=== PATIENT | female | born 1945 | race Hispanic/Latino ===

== ENCOUNTER 2018-11-10 23:36 | Emergency (ER) | payer MEDICARE, OTHER ==
[~2018-11-10] VITALS: Ht 154.9 cm; Wt 94.8 kg
[~2018-11-10 23:36] MED LIST: ALLOPURINOL100 MG PO; ATENOLOL50 MG PO; DIOVAN HCT 1601 EAC1 PO; SYNTHROID50 MCG PO
--- OUTSIDE RECORDS SUMMARY | 2018-11-10 23:38 | XMS REPORT | Summary of Care ---
Author Author [facility] Organization [facility] Address Unknown Phone Unavailable Encounter HQ Encntr_alicjanikko(FIN) [id number] Date(s): 02/05/17 - 02/05/17 [facility] [address] [place] [address]- 7 [phone] Discharge Disposition: Home or Self Care Attending Physician: Fred Whittaker MD Vital Signs No data available for this section Problem List No data available for this section Allergies, Adverse Reactions, Alerts No data available for this section Medications No data available for this section Results No data available for this section Immunizations No data available for this section Procedures No data available for this section Social History No data available for this section Assessment and Plan No data available for this section
--- OUTSIDE RECORDS SUMMARY | 2018-11-10 23:38 | XMS REPORT | Continuity of Care Document ---
Author Author [facility] Organization [facility] Address Unknown Phone Unavailable Care Team Providers Care Vp Securities Name Role Phone [employer] Information Understory Unavailable Unavailable Problems Problem Status Onset Date Classification Date Reported Comments Source R10.9 - UNSPECIFIED ABDOMINAL PAIN Active 01/20/2017 [facility] Medications No Data Provided for This Section Allergies, Adverse Reactions, Alerts No Known Medication Allergies Immunizations No Data Provided for This Section Results No Data Provided for This Section Pathology Reports No Data Provided for This Section Diagnostic Reports Report Value Date Source Gallbladder US EXAM: Gallbladder ultrasound. CLINICAL HX: Epigastric abdominal pain. Age: 71 years. Gender: Female. TECHNIQUE: Grayscale and Doppler sonogram of the gallbladder. COMPARISON: None. FINDINGS: Midline structures: -- Pancreas: Visualized portion is unremarkable. -- Aorta: Visualized portion is unremarkable. -- IVC: Visualized portion is unremarkable. Liver: -- Parenchyma: Diffuse increased echogenicity. -- Length: 18.9 cm. -- Other: None. Main portal vein: -- Diameter: 1.2 cm. -- Flow: Normal directional flow. Gallbladder: -- Intraluminal gallstones: Negative. -- Wall: No thickening. -- Sonographic Garzon sign: Negative. -- Other: Ringdown/comet tail artifact from the nondependent wall consistent with adenomyomatosis. Common bile duct: -- Diameter: 0.3 cm. Other: None. IMPRESSION: 1. Enlarged, echogenic liver consistent with fatty infiltration. 2. Gallbladder adenomyomatosis. 02/05/2017 [facility] Consultation Notes No Data Provided for This Section Discharge Summaries No Data Provided for This Section History and Physicals No Data Provided for This Section Vital Signs No Data Provided for This Section Encounters Location Location Details Encounter Type Encounter Number Reason For Visit Attending Provider ADM Date DC Date Status Source [facility] [id number] Fred Whittaker 02/05/2017 02/06/2017 [facility] Procedures No Data Provided for This Section Assessment and Plan No Data Provided for This Section Plan of Care No Data Provided for This Section Social History Social History Date Source No data available for this section 02/06/2017 [facility] [place] Family History No Data Provided for This Section Advance Directives No Data Provided for This Section Functional Status No Data Provided for This Section
--- OUTSIDE RECORDS SUMMARY | 2018-11-10 23:38 | XMS REPORT ---
Author [facility] Address Unknown Phone Unavailable Care Team Providers Care Hoop Maker Name Role Phone Unavailable Unavailable Payers Payer Name Policy Type Policy Number Effective Date Expiration Date Problems This patient has no known problems. Allergies, Adverse Reactions, Alerts Allergy Name Allergy Type Status Severity Reaction(s) Onset Date Inactive Date Treating Clinician Comments No Known Allergies DA Active U 2011-05-07 00:00:00 Medications This patient has no known medications. Results Test Description Test Time Test Comments Text Results Atomic Results Result Comments BREAST,BIOPSY 2018-07-07 14:00:00 RUN DATE: 07/07/18 [facility] PAGE 1 RUN TIME: 1400 Specimen Inquiry RUN USER: INTERFACE [facility] [id number] LOC: [facility] #: [id number] AGE/SX: 73/F ROOM: RE07/06/18REG DR: Claudia Gar MD : 47 BED: DIS: STATUS: PRE REF TLOC: SPEC #: [id number] RECD: 07/06/18 STATUS: [facility] #: [id number] ABHINAV: 07/06/18- SUBM DR: Sherrie Isaacs MD ENTERED: 07/06/18 SP TYPE: BX BREAST OTHR DR: ORDERED: GROSS PROCEDURES: GROSS (07/07/181031) TISSUES: 1. BREAST CORE BIOPSY - RIGHT + 2. 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, RIGHT BREAST CALCIFICATIONS FINAL DIAGNOSIS Right breast, core biopsies with calcifications: BREAST WITH FIBROCYSTIC CHANGES INCLUDING APOCRINE METAPLASIA AND USUAL DUCTAL EPITHELIAL HYPERPLASIA MICROCALCIFICATIONS PRESENT INCLUDING POLARIZABLE MICROCALCIFICATIONS NEGATIVE FOR MALIGNANCY Right breast, core biopsies without calcifications: BREAST TISSUE WITH FIBROCYSTIC CHANGES INCLUDING APOCRINE METAPLASIA AND USUAL DUCTAL EPITHELIAL HYPERPLASIA A RARE MICROCALCIFICATION SEEN NEGATIVE FOR MALIGNANCY DMW/sm D [phone] MACROSCOPIC The first specimen is received in formalin, labeled with the patient's name, and identified as "right breast with calcifications". It consists of multiple yellow and white fibrofatty fragments of tissue measuring 2.2 X 1.2 X 0.3 cm in aggregate. The specimen is submitted in its entirety for microscopic evaluation in cassette (1). The second specimen is received in formalin, labeled with the patient's name, and identified as "right breast without calcifications". It consists of CONTINUED ON NEXT PAGE RUN DATE: 07/07/18 [facility] PAGE 2 RUN TIME: 1400 Specimen Inquiry RUN USER: INTERFACE SPEC #: [id number] PATIENT: ANCA MCCORMICK #[id number] (Continued) MACROSCOPIC (Continued) multiple yellow and white fibrofatty fragments of tissue measuring 2.2 X 1.2 X 0.2 cm. The specimen is submitted in its entirety for microscopic evaluation in cassette (2). GROSS PERFORMED AT [facility] [address] [place] [address] (p)[phone] MICROSCOPIC All of the stains, including any controls performed, stain appropriately. MICROSCOPIC PERFORMED AT [facility] [address] [place] [address] [phone])[phone] PERFORMING SITE Diagnosis performed at: [facility], [place] [address] [place] [id number] Signed SIGNATURE ON FILE Dariela Chakraborty MD 07/07/18 1400 END OF REPORT
--- OUTSIDE RECORDS SUMMARY | 2018-11-10 23:38 | XMS REPORT | Clinical Summary ---
Author Author [facility] Address Unknown Phone Unavailable Care Team Providers Care Coin Teller Name Role Phone Claudia Gar MD PCP Allergies Not on File Medications Not on file Active Problems Not on file Social History Date Tobacco Use Types Packs/Day Years Used Never Assessed Sex Assigned at Date Recorded Not on file Industry Job Start Date Occupation Not on file Not on file Not on file Travel End Travel History Travel Start No recent travel history available. Last Filed Vital Signs Not on file Plan of Treatment Health Maintenance Due Date Last Done Comments BREAST CANCER SCREENING 1996 COLONOSCOPY SCREENING 1996 SHINGLES VACCINES (#1) 1996 INFLUENZA VACCINE 10/06/2018 65+ PNEUMOCOCCAL VACCINE Completed 01/03/2016, 07/25/2014 Results Not on fileafter 11/09/2017 Insurance Type Payer Benefit Subscriber ID Effective Phone Address Plan / Dates Group Medicare MEDICARE MEDICARE xxxxxxxxxx 2012-P [place], PART A AND resent [place] B HMO CIGNA CIGNA xxxxxxxxxxx 2016 HMO/POS -Present Advance Directives For more information, please contact: [phone] Patient Hotel Housekeeper Explanation Type Date Recorded Advance Directives, Living Will and Medical Power of Dobie Man
--- OUTSIDE RECORDS SUMMARY | 2018-11-10 23:38 | XMS REPORT | Summary of Care ---
Author Author PATT BECERRIL M.D. Organization Unknown Address Unknown Phone Unavailable Care Team Providers Care Fleecer Name Role Phone PATT BECERRIL M.D. Unavailable Unavailable FRENCH SINGLETON MD Unavailable Unavailable Unavailable Unavailable Functional Status Name Dates Details Functional status health issues are not documented Status: Name Dates Details Cognitive status health issues are not documented Status: Problems Name Dates Details Right upper quadrant abdominal pain (789.01, R10.11) Status: Active Diabetes (250.00, E11.9) Status: Active GERD (gastroesophageal reflux disease) (530.81, K21.9) Status: Active IBS (irritable bowel syndrome) (564.1, K58.9) Status: Active Medications Name Dates Details Medications not documented Allergies and Adverse Reactions Name Dates Details No Known Drug Allergies (Allergy) Status: Active Past Medical History Name Dates Details History of Anorexia (783.0, R63.0) Status: Resolved Procedures Procedure Dates Details History of Hysterectomy Completed Immunization Name Dates Details Immunizations not documented Social History Name Dates Details - Status: Name Dates Details Former smoker Vital Signs Date Test Result Details 64-Apr-952266:49 BP Systolic 145 mm[Hg] Status: Comments: Location: LUE; Position: Sitting BP Diastolic 75 mm[Hg] Status: Comments: Location: LUE; Position: Sitting Height 61 in Status: Weight 180 lb Status: Body Mass Index Calculated 34.01 kg/m2 Status: Body Surface Area Calculated 1.81 m2 Status: Temperature 98.2 f Status: Comments: Method: Oral Heart Rate 64 /min Status: Results Date Description Value Details Results not documented Plan of Care Name Dates Details Planned Observations Planned Goals not documented Interventions Provided Labs/Procedures/Imaging* Tobacco Use Screening; Done: 23 Aug 2018 Plan* - Refer to Dr. Eddie Mcknight for gastroenterology for evaluation and treatment if IBS. * - Prescribed glycopyrrolate 1 mg once every 6 hours prn. Instructions Name Dates Details Instructions not documented Encounters Appointment; PATT BECERRIL M.D. Encounter Diagnosis: Problem not documented On: 29-Dec-2016 13:30 Appointment; PATT BECERRIL M.D. Encounter Diagnosis: Problem not documented On: 27-Apr-2017 14:30 Appointment; PATT BECERRIL M.D. Encounter Diagnosis: Problem not documented On: 23-Aug-2018 12:30
[2018-11-11] MEDS ORDERED: ASPIRIN 81 MG CHEW TAB PO ONE (00:15)
[2018-11-11 00:34] LABS: BASOPHILS # (AUTO) 0.1 (0.0-0.1); BASOPHILS % 0.5 % (0.0-1.0); EOSINOPHILS # (AUTO) 0.2 (0.0-0.4); EOSINOPHILS % 2.4 % (0.0-6.0); HEMATOCRIT 37.4 % (34.2-44.1); HEMOGLOBIN 12.3 g/dL (12.0-16.0); LYMPHOCYTES # (AUTO) 3.1 (1.0-3.2); LYMPHOCYTES % 32.8 % (18.0-39.1); MEAN CORPUSCULAR HEMOGLOBIN 30.2 pg (28-32); MEAN CORPUSCULAR HGB CONC 32.9 g/dL (31-35); MEAN CORPUSCULAR VOLUME 91.9 fL (81-99); MONOCYTES # (AUTO) 0.8 (0.2-0.8); MONOCYTES % 8.1 % (4.4-11.3); NEUTROPHILS # (AUTO) 5.3 (2.1-6.9); NEUTROPHILS % 55.8 % (38.7-80.0); PLATELET COUNT 253 x10e3/uL (140-360); RED BLOOD COUNT 4.07 x10e6/uL (3.6-5.1); RED CELL DISTRIBUTION WIDTH 13.1 % (11.7-14.4)
[2018-11-11 00:49] LABS: CLARITY,URINE CLEAR (CLEAR); COLOR,URINE YELLOW (YELLOW)
[2018-11-11 00:50] LABS: BILIRUBIN,URINE NEGATIVE (NEGATIVE); KETONES,URINE NEGATIVE (NEGATIVE); LEUKOCYTE ESTERASE ,URINE LARGE (NEGATIVE); NITRITE,URINE NEGATIVE (NEGATIVE); PROTEIN,URINE DIPSTICK NEGATIVE (NEGATIVE); URINE UROBILINOGEN 0.2 mg/dL (0.2 - 1)
[2018-11-11 00:51] LABS: BACTERIA,URINE FEW /HPF; EPITHELIAL CELLS,URINE FEW /LPF
--- NOTE | 2018-11-11 00:53 | Diagnostic Imaging Report ---
EXAMINATION: Head CT without contrast. HISTORY:Dizziness. COMPARISON:None. TECHNIQUE: Multidetector axial images were obtained from the foramen magnum to the vertex without contrast. The images were reconstructed using brain and bone algorithms. Thin section brain images were reformatted into coronal and sagittal planes. Dose modulation, iterative reconstruction, and/or weight based adjustment of the mA/kV was utilized to reduce the radiation dose to as low as reasonably achievable. Intravenous contrast: None IMAGE QUALITY: Acceptable. FINDINGS: Skull/scalp: No lytic or blastic. lesions. No surgical changes. Incidental 1.1 x 0.4 cm exophytic osseous lesion in the inner table of left frontal calvarium near the vertex possibly represents osteoma/exostosis. Parenchyma: Nonspecific few, scattered supratentorial white matter hypodensity are likely related to small vessel ischemic changes. No acute hemorrhage, mass or acute major vascular territorial infarct. Arteries: No density suggestive of thrombosis. Dural sinuses: No abnormal density suggestive of thrombosis. Ventricles: No hydrocephalus or displacement. Extra-axial spaces: No abnormal density. Brain volume: Normal for age. Craniocervical junction: No mass, Chiari malformation, or basilar invagination. Sella: No mass. Paranasal/mastoid sinuses: Imaged portions unremarkable. IMPRESSION: No acute intracranial abnormality. Minimal supratentorial white matter microvascular ischemic changes. Signed by: Dr. Doreen Gómez M.D. on 11/11/2018 12:50 AM
[2018-11-11 00:55] LABS: ALANINE AMINOTRANSFERASE 12 IU/L (0-55); ALBUMIN 3.8 g/dL (3.5-5.0); ALBUMIN/GLOBULIN RATIO 1.2 (0.8-2.0); ALKALINE PHOSPHATASE 101 IU/L (40-150); BLOOD UREA NITROGEN 13 mg/dL (7-26); BUN/CREATININE RATIO 18 (6-25); CALCIUM 10.1 mg/dL (8.4-10.2); CHLORIDE 101 mmol/L (98-107); CREATINE KINASE 60 IU/L (29-168); CREATININE, SERUM 0.73 mg/dL (0.57-1.11); EST GLOMERULAR FILTRATION RATE > 60 ML/MIN (60-); GLUCOSE 101 mg/dL (74-118); POTASSIUM 3.5 mmol/L (3.5-5.1); SODIUM 138 mmol/L (136-145)
--- NOTE | 2018-11-11 00:58 | Diagnostic Imaging Report ---
EXAMINATION: CHEST SINGLE (PORTABLE) COMPARISON: None INDICATION: ^dizzy ^[id number] ^[id number] DISCUSSION: Frontal view of the chest obtained at 0043 hours. HEART AND MEDIASTINUM: The heart is normal in size. Aorta is mildly tortuous calcifications of the arch LINES: None. LUNGS: Hazy airspace opacities in the mid and inferior right lung zone. Left lung is clear. PLEURA: No pleural effusion or pneumothorax. BONES AND SOFT TISSUES: No focal osseous lesion. The soft tissues are normal. IMPRESSION: Hazy opacity in the right lung base may be due to atelectasis or developing infiltrate. Signed by: Dr. Sal Lomas MD on 11/11/2018 12:54 AM
[2018-11-11] MEDS ORDERED: SODIUM CHLORIDE 0.9% 500ML 500 ML IV ONE (01:00)
[2018-11-11] MEDS ORDERED: CEFTRIAXONE SOD 1 GM/NS 50 ML 50 ML IV ONE (01:00)
[2018-11-11 01:06] LABS: ANION GAP 15.5 mmol/L (8-16); CARBON DIOXIDE 26 mmol/L (22-29)
[2018-11-11] MEDS ORDERED: MECLIZINE HCL12.5 MG PO (01:35)
[2018-11-11] MEDS ORDERED: BACTRIM DS TAB1 EACH PO (01:35)
[2018-11-11 03:00] VITALS: BP 150/70
== END 2018-11-11 02:30 | disposition home or self-care (01) ==
LOC: ER 23:36
DX: R42 Dizziness and giddiness (principal); H81.12 Benign paroxysmal vertigo, left ear
CPT/HCPCS: 36415; 70450; 71045; 80053; 81001; 82550; 82553; 84484; 85025; 87086; 93005; 99283; J0696; J7040

== ENCOUNTER 2022-05-02 19:47 | Emergency (ER) | payer MEDICARE, OTHER ==
[~2022-05-02] VITALS: Ht 154.9 cm; Wt 78.9 kg
[~2022-05-02 19:47] MED LIST changes: +BACTRIM DS TAB1 EACH PO; +MECLIZINE HCL12.5 MG PO
[2022-05-02 21:24] VITALS: BP 160/70
== END 2022-05-02 21:24 | disposition home or self-care (01) ==
LOC: FSED 20:05
DX: S20.212A Contusion of left front wall of thorax, initial encounter (principal); W01.0XXA Fall on same level from slipping, tripping and stumbling without subsequent striking against object, initial encounter; Y93.01 Activity, walking, marching and hiking; Y92.89 Other specified places as the place of occurrence of the external cause; I10 Essential (primary) hypertension; E11.9 Type 2 diabetes mellitus without complications; E78.5 Hyperlipidemia, unspecified; E03.9 Hypothyroidism, unspecified; M10.9 Gout, unspecified
CPT/HCPCS: 71101; 99282

== ENCOUNTER 2022-06-19 13:05 | Emergency (ER) | payer MEDICARE, OTHER ==
[~2022-06-19] VITALS: Ht 154.9 cm; Wt 79.8 kg
[2022-06-19] MEDS ORDERED: TYLENOL325 MG PO (14:18)
[2022-06-19] MEDS ORDERED: IBUPROFEN200 MG PO (14:18)
== END 2022-06-19 14:30 | disposition home or self-care (01) ==
LOC: FSED 13:07
DX: M25.571 Pain in right ankle and joints of right foot (principal); M76.61 Achilles tendinitis, right leg; I10 Essential (primary) hypertension; E11.9 Type 2 diabetes mellitus without complications; E78.5 Hyperlipidemia, unspecified; E03.9 Hypothyroidism, unspecified; M10.9 Gout, unspecified
CPT/HCPCS: 99283

== ENCOUNTER 2023-09-23 08:32 | Inpatient (IN) | payer MEDICARE, OTHER ==
[2023-09-23] VITALS (9 sets, daily range): BP systolic 148–178; BP diastolic 65–84; PULSE 50–64; RESP 15–18; TEMP 97.6–98.2; O2SAT 98–100
[~2023-09-23] VITALS: Ht 157.5 cm; Wt 75.3 kg
[~2023-09-23 08:32] MED LIST changes: +IBUPROFEN200 MG PO; +TYLENOL325 MG PO
[2023-09-23 08:48] LABS: BASOPHILS % 0.2 % (0.0-1.0); EOSINOPHILS % 0.2 % (0.0-6.0); HEMATOCRIT 35.7 % (34.2-44.1); HEMOGLOBIN 12.2 g/dL (12.0-16.0); LYMPHOCYTES # (AUTO) 1.6 (1.0-3.2); LYMPHOCYTES % 15.7 % (18.0-39.1); MEAN CORPUSCULAR HEMOGLOBIN 29.9 pg (28-32); MEAN CORPUSCULAR HGB CONC 34.2 g/dL (31-35); MEAN CORPUSCULAR VOLUME 87.5 fL (81-99); MONOCYTES # (AUTO) 0.5 (0.2-0.8); NEUTROPHILS # (AUTO) 8.1 (2.1-6.9); NEUTROPHILS % 78.2 % (38.7-80.0); PLATELET COUNT 255 x10e3/uL (140-360); RED BLOOD COUNT 4.08 x10e6/uL (3.6-5.1); RED CELL DISTRIBUTION WIDTH 12.2 % (11.7-14.4); WHITE BLOOD COUNT 10.31 x10e3/uL (4.8-10.8)
[2023-09-23 09:05] LABS: INR 0.95; PROTHROMBIN TIME 13.4 seconds (11.9-14.5)
[2023-09-23 09:06] LABS: PARTIAL THROMBOPLASTIN TIME 28.9 seconds (23.8-35.5)
[2023-09-23 09:10] LABS: ALANINE AMINOTRANSFERASE 12 IU/L (0-55); ALBUMIN 3.7 g/dL (3.5-5.0); ALBUMIN/GLOBULIN RATIO 1.3 (0.8-2.0); ALKALINE PHOSPHATASE 65 IU/L (40-150); ANION GAP 18.2 mmol/L (8-16); BILIRUBIN,TOTAL 0.3 mg/dL (0.2-1.2); BLOOD UREA NITROGEN 15 mg/dL (7-26); BUN/CREATININE RATIO 19 (6-25); CARBON DIOXIDE 20 mmol/L (22-29); CHLORIDE 92 mmol/L (98-107); CREATINE KINASE 105 IU/L (29-168); EST GLOMERULAR FILTRATION RATE 76 ML/MIN (>=60); GLUCOSE 134 mg/dL (74-118); POTASSIUM 4.2 mmol/L (3.5-5.1); SODIUM 126 mmol/L (136-145); TOTAL PROTEIN 6.5 g/dL (6.5-8.1)
[2023-09-23 09:14] LABS: TROPONIN I < 0.001 ng/mL (0-0.300)
[2023-09-23] MEDS ORDERED: ONDANSETRON HCL INJ 2MG/ML 2ML 2 MG/ML VIAL IV PRN (09:45)
[2023-09-23] MEDS: SODIUM CHLORIDE 0.9% 1000ML 1,000 ML IV STA (09:47)
[2023-09-23] MEDS: MECLIZINE HCL 12.5 MG TAB PO ONE (09:47)
[2023-09-23 10:13] LABS: BILIRUBIN,URINE NEGATIVE (NEGATIVE); CLARITY,URINE SL CLOUDY (CLEAR); COLOR,URINE YELLOW (YELLOW); GLUCOSE, URINE NEGATIVE (NEGATIVE); KETONES,URINE NEGATIVE (NEGATIVE); LEUKOCYTE ESTERASE ,URINE SMALL (NEGATIVE); NITRITE,URINE NEGATIVE (NEGATIVE); PH,URINE 6 (5 - 7); PROTEIN,URINE DIPSTICK NEGATIVE (NEGATIVE); URINE UROBILINOGEN 0.2 mg/dL (0.2 - 1)
[2023-09-23] MEDS ORDERED: BISACODYL 10 MG SUPP PR PRN (10:15)
[2023-09-23 10:16] LABS: BACTERIA,URINE MODERATE /HPF; EPITHELIAL CELLS,URINE FEW /LPF
[2023-09-23 10:26] LABS: BLOOD UREA NITROGEN 15 mg/dL (7-26); GLUCOSE 133 mg/dL (74-118); OSMOLALITY,SERUM 256 mOsm/kg (278-305); SODIUM 126 mmol/L (136-145)
[2023-09-23] MEDS ORDERED: HYDRALAZINE HCL 20 MG/ML VIAL IV PRN (11:00)
[2023-09-23] MEDS ORDERED: METFORMIN HCL500 MG PO (11:28)
[2023-09-23] MEDS ORDERED: MELOXICAM7.5 MG PO (11:29)
[2023-09-23] MEDS: SODIUM CHLORIDE 0.9% 1000ML 1,000 ML IV ONE (11:36)
[2023-09-23] MEDS ORDERED: GADOBENATE DIMEGLUMINE 1 ML IV ONE (12:06)
[2023-09-23] MEDS: KETOROLAC TROMETHAMINE 30 MG/ML VIAL IV PRN (12:08)
[2023-09-23] MEDS: METHOCARBAMOL 750 MG TAB PO PRN (15:00)
[2023-09-23] MEDS: ACETAMINOPHEN 325 MG TAB PO PRN (15:01)
[2023-09-23] MEDS ORDERED: LOPERAMIDE HCL 2 MG CAP PO PRN (15:15)
[2023-09-23] MEDS: LOPERAMIDE HCL 2 MG CAP PO ONE (15:56)
[2023-09-23 16:31] LABS: ANION GAP 18.4 mmol/L (8-16); CALCIUM 9.2 mg/dL (8.4-10.2); CREATININE, SERUM 0.78 mg/dL (0.57-1.11); POTASSIUM 4.4 mmol/L (3.5-5.1)
[2023-09-23 16:53] LABS: CREATINE KINASE 122 IU/L (29-168)
[2023-09-23 17:05] LABS: TROPONIN I < 0.001 ng/mL (0-0.300)
[2023-09-23] MEDS: ENOXAPARIN SOD INJ 40 MG/0.4 ML SYR SC SCH (17:32)
[2023-09-23] MEDS: HYDROCODONE/APAP 5MG-325MG TAB PO PRN (17:45)
[2023-09-23] MEDS ORDERED: INFLUENZA VIRUS VAC SPLIT INJ 0.5 ML SYR IM SCH (21:00)
[2023-09-24] VITALS (7 sets, daily range): BP systolic 146–175; BP diastolic 67–81; PULSE 56–72; RESP 17–18; TEMP 97.8–98.5; O2SAT 98–100
[2023-09-24 06:24] LABS: WHITE BLOOD COUNT 9.63 x10e3/uL (4.8-10.8)
[2023-09-24 06:25] LABS: BASOPHILS # (AUTO) 0.1 (0.0-0.1); BASOPHILS % 0.6 % (0.0-1.0); EOSINOPHILS # (AUTO) 0.2 (0.0-0.4); EOSINOPHILS % 1.6 % (0.0-6.0); HEMATOCRIT 38.2 % (34.2-44.1); LYMPHOCYTES % 31.5 % (18.0-39.1); MEAN CORPUSCULAR HEMOGLOBIN 30.2 pg (28-32); MEAN CORPUSCULAR VOLUME 88.8 fL (81-99); MONOCYTES # (AUTO) 1.1 (0.2-0.8); MONOCYTES % 10.9 % (4.4-11.3); NEUTROPHILS # (AUTO) 5.3 (2.1-6.9); NEUTROPHILS % 54.9 % (38.7-80.0); PLATELET COUNT 267 x10e3/uL (140-360); RED CELL DISTRIBUTION WIDTH 12.5 % (11.7-14.4)
[2023-09-24 07:02] LABS: ANION GAP 17.3 mmol/L (8-16); CREATININE, SERUM 0.76 mg/dL (0.57-1.11); POTASSIUM 4.3 mmol/L (3.5-5.1)
[2023-09-24 07:03] LABS: ALBUMIN 3.7 g/dL (3.5-5.0); ALBUMIN/GLOBULIN RATIO 1.4 (0.8-2.0); BILIRUBIN,TOTAL 0.3 mg/dL (0.2-1.2); CALCIUM 8.8 mg/dL (8.4-10.2); TOTAL PROTEIN 6.4 g/dL (6.5-8.1)
[2023-09-24 07:04] LABS: CREATINE KINASE 123 IU/L (29-168); TROPONIN I < 0.001 ng/mL (0-0.300)
[2023-09-24] MEDS: DOCUSATE SODIUM 100 MG CAP PO SCH (09:00)
[2023-09-24] MEDS: SENNOSIDES 8.6 MG TAB PO SCH (09:00)
[2023-09-24] MEDS: VALSARTAN 80 MG TAB PO SCH (10:17)
[2023-09-24] MEDS: AMLODIPINE BESYLATE 5 MG TAB PO SCH (10:17)
[2023-09-24] MEDS ORDERED: ONDANSETRON HCL 4 MG ORAL DISINTEGRATING TAB PO PRN (11:00)
[2023-09-24 14:52] LABS: ANION GAP 18.9 mmol/L (8-16); POTASSIUM 4.9 mmol/L (3.5-5.1)
[2023-09-24 14:53] LABS: CALCIUM 9.3 mg/dL (8.4-10.2); CREATININE, SERUM 0.8 mg/dL (0.57-1.11)
[2023-09-24] MEDS ORDERED: DIOVAN160 MG PO (18:45)
[2023-09-24] MEDS ORDERED: NORVASC5 MG PO (18:45)
[2023-09-24] MEDS ORDERED: AUGMENTIN 500-1 EACH PO (18:45)
[2023-09-24] MEDS ORDERED: KETOROLAC TROME10 MG PO (18:45)
== END 2023-09-24 20:20 | disposition home or self-care (01) | DRG 690 ==
LOC: ER 08:50 → ERHOLD 09:50 → MED/SURG3 10:32
PROVIDERS: ADMIT Internal Medicine; ATTEND Internal Medicine
DX: N30.00 Acute cystitis without hematuria (principal); E87.1 Hypo-osmolality and hyponatremia; E11.9 Type 2 diabetes mellitus without complications; E03.9 Hypothyroidism, unspecified; D32.9 Benign neoplasm of meninges, unspecified; R00.1 Bradycardia, unspecified; I10 Essential (primary) hypertension; E78.2 Mixed hyperlipidemia; H81.10 Benign paroxysmal vertigo, unspecified ear; F31.9 Bipolar disorder, unspecified; Z68.33 Body mass index [BMI] 33.0-33.9, adult; G93.9 Disorder of brain, unspecified; K58.9 Irritable bowel syndrome, unspecified; I95.9 Hypotension, unspecified; B95.5 Unspecified streptococcus as the cause of diseases classified elsewhere; M10.9 Gout, unspecified; T50.2X5A Adverse effect of carbonic-anhydrase inhibitors, benzothiadiazides and other diuretics, initial encounter; M54.50 Low back pain, unspecified; M79.605 Pain in left leg; Z79.890 Hormone replacement therapy
CPT/HCPCS: 36415; 70450; 70553; 71045; 80048; 80053; 81001; 82550; 82947; 82948; 83036; 83735; 83935; 84295; 84300; 84443; 84484; 84520; 85025; 85610; 85730; 87086; 93005; 99252; 99285; J0360; J0696; J1650; J1885; J7030; U0002

== ENCOUNTER 2024-10-17 06:40 | Emergency (ER) | payer MEDICARE, OTHER ==
[~2024-10-17] VITALS: Ht 157.5 cm; Wt 77.1 kg
[~2024-10-17 06:40] MED LIST changes: +AUGMENTIN 500-1 EACH PO; +DIOVAN160 MG PO; +KETOROLAC TROME10 MG PO; +MELOXICAM7.5 MG PO; +METFORMIN HCL500 MG PO; +NORVASC5 MG PO
[2024-10-17 07:08] LABS: BASOPHILS % 0.8 % (0.0-1.0); EOSINOPHILS % 4.2 % (0.0-6.0); LYMPHOCYTES % 36.2 % (18.0-39.1); MONOCYTES % 9.7 % (4.4-11.3); NEUTROPHILS % 49.0 % (38.7-80.0); RED CELL DISTRIBUTION WIDTH 12.8 % (11.7-14.4)
[2024-10-17 07:21] LABS: INR 0.94
[2024-10-17 07:32] LABS: CORONAVIRUS COVID-19 AG NEGATIVE (NEGATIVE); EST GLOMERULAR FILTRATION RATE 70.0 ML/MIN (>=60)
[2024-10-17] MEDS: SODIUM CHLORIDE 0.9% 500ML 500 ML IV ONE (08:08)
[2024-10-17 08:20] LABS: LEUKOCYTE ESTERASE ,URINE SMALL (NEGATIVE); PROTEIN,URINE DIPSTICK NEGATIVE (NEGATIVE); URINE UROBILINOGEN 0.2 mg/dL (0.2 - 1)
[2024-10-17 08:51] LABS: EPITHELIAL CELLS,URINE FEW /LPF; WBC,URINE (MAN) 0-5 /HPF (0-5)
[2024-10-17] MEDS ORDERED: CEFUROXIME250 MG PO (09:28)
[2024-10-17 09:49] VITALS: PULSE 60; RESP 17; TEMP 98.1
[2024-10-17 09:51] VITALS: BP 143/68; PULSE 60; RESP 17; TEMP 98.1; O2SAT 100
== END 2024-10-17 09:51 | disposition home or self-care (01) ==
LOC: ER 06:44
DX: R09.81 Nasal congestion (principal); N39.0 Urinary tract infection, site not specified; Z11.52 Encounter for screening for COVID-19; R94.31 Abnormal electrocardiogram [ECG] [EKG]
CPT/HCPCS: 36415; 71045; 80053; 81001; 83735; 84484; 85025; 85610; 85730; 87086; 87428; 93005; 99284; J7040